=== PATIENT | male | born 1970 | race Two or more races ===

== ENCOUNTER 2023-05-21 15:23 | Emergency (ER) | payer MEDICARE, MEDICAID, SELFPAY ==
[2023-05-21 15:23] VITALS: PULSE 0; RESP 0; BMI 20.4
[2023-05-21 15:26] VITALS: PULSE 0; O2SAT 0
--- NOTE | 2023-05-21 15:34 | ED.CPR2 ---
HPI - CPR General Chief Complaint: Cardiac Arrest/CPR Stated Complaint: Cardiac Arrest History of Present Illness HPI Narrative: This patient was brought to us from a care facility. CPR was underway. When they arrived here CPR had been undergoing for over 40 minutes. Squad indicated that their initial rhythm on their arrival was asystole. They said they did deliver 2 shocks and had extremely brief ROSC. Apparently when they arrived caregivers had started manual CPR but they had not defibrillated him with AED. Paramedics were able to intubate him, start peripheral IV and a right shoulder intraosseous. By their history, 5 doses of epinephrine had been given, amiodarone 1 dose, atropine 1 dose. There is no spontaneous respirations. There is no pulse. I a CPR team had been assembled awaiting his arrival. The initial evaluation showed a automatic thumper doing CPR. Patient's endotracheal tube displayed good aeration both lung sounds by auscultation by myself. The patient's cranial nerve examination showed no pupillary light response, no corneal blink response, there is no gag reflex with tugging on the endotracheal tube. Patient had no palpable pulse he was in EMD very briefly on arrival here but had been given epinephrine repeatedly as noted above. We continued CPR. I do not see any tracheal shift or severe jugular vein distention do not see any indication pericardial tamponade. No evidence of cranial trauma or injury. We did continue CPR for several more minutes during the assessment. At no time did he have respiratory effort a pulse or change in his status. He was pronounced by myself. We were told that this patient has known esophageal cancer and was to be considered for hospice care today. I do not believe he is a candidate for autopsy services. We will speak to his guardian at this time diagnosis out of hospital cardiac arrest Discharge Plan Discharge Chief Complaint: Cardiac Arrest/CPR Clinical Impression: Cardiac arrest Patient Disposition: Referrals: EKTA BOJORQUEZ [Primary Care Provider] - 1 week
--- NOTE | 2023-05-21 15:45 | PC.NURSE ---
[facility] notified of patients . Referral number [id number].
--- NOTE | 2023-05-21 17:30 | PC.NURSE ---
Addendum entered by Tiki Lane RN 05/21/23 18:06: 05/21/23 @ [id number], update provided to [employer] @ [id number] updated that patient was transferred to [facility] via [facility] system. Original Note: Alisia, patients guardian, called and updated that [facility] is taking patient to the Home.
== END 2023-05-21 17:26 | disposition expired ==
PROVIDERS: Emergency Provider Emergency Medicine Emergency Medical Services; PCP Family Medicine
DX: I46.9 Cardiac arrest, cause unspecified (principal); C15.9 Malignant neoplasm of esophagus, unspecified
CPT/HCPCS: 92950; 99285